=== PATIENT | female | born 1995 | race American Indian/Alaskan Native ===

== ENCOUNTER 2018-07-27 17:06 | Inpatient (IN) | payer OTHER ==
[2018-07-27] MEDS ORDERED: Oxytocin 20 units in LR 2,000 ML IV ONE (17:41)
[2018-07-27] MEDS ORDERED: Penicillin G 5 Million Unit Vial IVPB ONE ×2 (17:41→18:11)
--- NOTE | 2018-07-27 18:02 | OBHP ---
Datetime: 07/27/2018 17:33 IP Adm Impression: Term, intrauterine ; Active labor; Intact Membranes IP Admit Plan: Admit to unit; Initiate labor protocol Admit Comment, IP Provider: 22 y.o. , LMP 10/21/17, AZEEM 07/28/18, EGA 39w 6d c/o Ctx on set 1 400 hours, every 10 - 11 minutes, pain scale 7/10. (+) Mucoid, pinkish vaginal discharge 1430 hours. (+) AFM; denies LOF. care: [facility] - denies any issues; told to have bacteria in urine in clinic yesterday. P OB: 2014, , female, 7lb 7oz, [facility]; no complications. 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 Denies h/o STIs, ovarian cysts, abnormal Pap. Diagnosed myoma this pregna ncy PMH: h/o asthma - childhood. Last attack age 13/16 - no intubations, no steroid use. PSH: D_C NKDA Meds: PNV soc Hx: denies tobacco, illicit drug or EtOH use. With FOB x 9 years. Lives with her mother and [facility]. Unemployed. Fam Hx: Mother alive 58 y.o. - HTN. Father - unknown. No known fam h/o cancer. P.E.: as above. WD in NAD. Awake, alert, oriented to time, person and place. Pleasant and coopera tive. Assessment: 22 y.o. P1011, 39w 6d, active labor. Category 1 tracing. GBS unknown. D/W patient: adm it for delivery. Patient expressed an understanding and agrees. R/O UTI. Clinically stable. Plan: 1) admit 2) NPO 3) Admission labs 4) Continuous EFM 5) Penicillin G 6) urine for C_S 7) anticipate vaginal delivery Pelvic Type - PN: Adequate Extremities - PN: Normal Abdomen - PN: Normal Back - PN: Normal Breast - PN: Normal Lungs - PN: Normal Heart - PN: Normal Thyroid - PN: Not Done Neurologic - PN: Normal HEENT - PN: Normal General - PN: Normal Weight - Estimated: 7 3/4 lb Presentation-Admit: Vertex FHR - Baseline A Provider: 130 Membranes, Provider: Intact Contraction Comments Provider: 3 minutes Comments, ACOG Physical Exam: Abdomen: Gravid. Firm with contractions. Fundal height 40 cm All other systems reviewd and are negative Gestation - Est Wks by US: 39w 6d EGA AdmitDate IP: 39.6 Vital Signs Provider: Reviewed; Within Normal Limits IP Indication for Induction: Not Applicable IP Chief Complaint: Uterine contractions NICHD Variability Prov Fetus A: Moderate 6-25bpm NICHD Accel Fetus A IP Provider: [id number] FHR Category Provider Fetus A: Category I NICHD Decel Fetus A IP Provider: None Dilatation, Provider: 7 Effacement, Provider: 70 Station, Provider: -2 Genitourinary Exam: Normal DTRs - PN: Not Done
[2018-07-27 18:11] VITALS: BMI 27.0
[2018-07-27] MEDS ORDERED: Lactated Ringer's 1,000 ML IV ONE (18:11)
[2018-07-27] MEDS ORDERED: Lactated Ringer's 1,000 ML IV SCH (18:15)
[2018-07-27 18:54] LABS: BASO # 0.1 K/uL (0.0-0.2); BASO % 0.5 % (0.0-2.0); EOS # 0.4 K/uL (0.0-0.7); EOS % 4.2 % (0.0-4.0); HEMOGLOBIN 11.7 g/dL (11.0-16.0); LYMPH # 1.8 K/uL (1.0-4.3); LYMPH % 16.9 % (20.0-40.0); MEAN CELL VOLUME 77.3 fL (81.0-99.0); MEAN CORPUSCULAR HEMOGLOBIN 24.8 pg (27.0-31.0); MEAN CORPUSCULAR HGB CONC 32.1 g/dL (33.0-37.0); MEAN PLATELET VOLUME 10.1 fL (7.2-11.7); MONO % 9.9 % (0.0-10.0); NEUT # 7.2 K/uL (1.8-7.0); NEUT % 68.5 % (50.0-75.0); NRBC % 0.1 % (0.0-2.0); RBC 4.71 Mil/uL (3.80-5.20); RED CELL DISTRIBUTION WIDTH 19.8 % (11.5-14.5); WHITE BLOOD COUNT 10.5 K/uL (4.8-10.8)
[2018-07-27 19:06] LABS: ALBUMIN 3.9 g/dL (3.5-5.0); ALT/SGPT 14 U/L (9-52); AST/SGOT 22 U/L (14-36); BLOOD UREA NITROGEN 6 mg/dL (7-17); CALCIUM 9.5 mg/dl (8.6-10.4); GFR NON-AFRICAN AMERICAN > 60
[2018-07-27 19:15] LABS: SQUAMOUS EPITHIAL 12 /hpf (0-5); URINE BACTERIA RARE (<OCC); URINE BILIRUBIN NEGATIVE (NEGATIVE); URINE BLOOD 2+ (NEGATIVE); URINE CLARITY Hazy (Clear); URINE COLOR Yellow (YELLOW); URINE GLUCOSE (UA) NORMAL (Normal); URINE LEUKOCYTE ESTERASE 3+ Leu/uL (Negative); URINE PROTEIN 1+ mg/dL (NEGATIVE); URINE UROBILINOGEN NORMAL mg/dL (0.2-1.0)
[2018-07-27 19:27] LABS: BARBITURATES, UR NEGATIVE (NEGATIVE); BENZODIAZEPINES, UR NEGATIVE (NEGATIVE); OPIATES, UR NEGATIVE (NEGATIVE); PHENCYCLIDINE, UR NEGATIVE (NEGATIVE)
[2018-07-27 19:36] LABS: HEPATITIS B SURFACE AG Negative (NEGATIVE)
[2018-07-27] MEDS ORDERED: Lidocaine 2% MPF (5 ml) Inj ONE ×2 (20:03→20:26)
[2018-07-27] MEDS ORDERED: Penicillin G Potassium 2.5 MU in Dextrose 5% In Water 50 ML IV SCH (21:15)
[2018-07-27 21:35] LABS: RAPID PLASMA REAGIN NONREACTIVE (NONREACTIVE)
[2018-07-27] MEDS ORDERED: Oxycodone/Acetaminophen 5/325 mg Tab PO PRN (22:23)
[2018-07-27] MEDS ORDERED: Benzocaine/Menthol 20%-0.5% Topical Spray (60 ml) TOP PRN (22:23)
--- NOTE | 2018-07-27 22:53 | OBDS ---
DELIVERY PERSONNEL Delivery Doctor: Ashish Palomo MD Workers Compensation Attorney: Janessa Proctor RN MATERNAL INFORMATION Delivery Anesthesia: Local Medications in Delivery: PITOCIN Estimated Blood Loss (ml): 300 Placenta Cultured: No Maternal Complications: None Provider Comments: En caul vaginal delivery, live female infant, KATALINA position over intact perineum. Upon delivery of , ROM performed, llightly stained meconium liquor noted. Umbilical cord doubly clamped and cut; placed on mother's abodmen. Spontaneous delivery of placenta: grossly intact, 3 vessel cord Uterine exploration performed; uterus contracted and firm. Examination of cervix, vagina, perineum noted for laceration as described above - repaired as abov e. Hemostasis assured. Patient tolerated procedure well. and mother bonding. EBL 300 mL Weight 7lb 15oz 's 9/9 LABOR SUMMARY EDC: 07/28/2018 00:00 No. Babies in Womb: 1 Attempted: No Labor Anesthesia: None LABOR INFORMATION Onset of Labor: 07/27/2018 14:30 Complete Dilatation: 07/27/2018 19:52 Oxytocin: N/A Group B Beta Strep: Positive Antibiotics # of Doses: 1 Antibiotics Time of Last Dose: 17:44 Steroids Given: None Reason Steroids Not Administered: Not Applicable MEMBRANES Membranes Rupture Method: Artificial Rupture of Membranes: 07/27/2018 20:05 Length of Rupture (hrs): 0.02 Amniotic Fluid Color: Light Meconium Amniotic Fluid Amount: Moderate Amniotic Fluid Odor: Normal STAGES OF LABOR Stage 1 hrs: 5 Stage 1 min: 22 Stage 2 hrs: 0 Stage 2 min: 14 Stage 3 hrs: 0 Stage 3 min: 11 Total Time in Labor hrs: 5 Total Time in Labor min: 47 VAGINAL DELIVERY Episiotomy: None Laceration Extension: Second Degree Laceration Type: Perineal Laceration Repair: Yes Laceration Repair Note: 2-0 and 3-0 chromic in routine fashion. Hemostasis assured. Patient tolerate d procedure well. Initial Vag Sponge Count: 10+1Lap Final Vag Sponge Count: 10+1Lap Initial Vag Sharps Count: 0 Final Vag Sharps Count: 2 Sponge Count Correct: Yes; Vaginal Sweep Performed Sharps Count Correct: Yes Count Comment: Correct BABY A INFORMATION Infant Delivery Date/Time: 07/27/2018 20:06 Method of Delivery: Vaginal Born in Route : No : N/A Forceps: N/A Vacuum Extraction: N/A Shoulder Dystocia : No SHOULDER DYSTOCIA BABY A Infant Delivery Date/Time: 07/27/2018 20:06 PRESENTATION/POSITION BABY A Presentation: Cephalic Cephalic Presentation: Vertex Vertex Position: Right Occipital Anterior (Annotations: Data stored by [facility] on behalf of user) Breech Presentation: N/A PLACENTA INFORMATION BABY A Placenta Delivery Time : 07/27/2018 20:17 Placenta Method of Delivery: Spontaneous Placenta Status: Delivered SCORES BABY A Heart Rate 1 min: >100 bpm Resp Effort 1 min: Good Cry Reflex Irritability 1 min: Cough or Sneeze or Pulls Away Muscle Tone 1 min: Active Motion Color 1 min: Body Rolette, Extremities Blue SCORE 1 MIN: 9 Heart Rate 5 min: >100 bpm Resp Effort 5 min: Good Cry Reflex Irritability 5 min: Cough or Sneeze or Pulls Away Muscle Tone 5 min: Active Motion Color 5 min: Body Rolette, Extremities Blue SCORE 5 MIN: 9 INFANT INFORMATION BABY A Gestational Age at Delivery: 39.6 Gestational Status: Term Infant Outcome : Liveborn Infant Condition : Stable Sex: Female IDENTIFICATION/MEDS BABY A ID Band Number: [id number] ID Band Location: Left Leg; Left Arm Sensor Applied: Yes Sensor Number: [id number] Sensor Location : Cord Clamp Vitamin K Given : Aquamephyton 0.5 mg IM Erythromycin Given: Given Both Eyes WEIGHT/LENGTH BABY A Infant Birthweight (gms): 3590 Weight (lb): 7 Weight (oz): 15 Infant Length Inches: 20.50 Infant Length cms: 52.1 CORD INFORMATION BABY A No. Cord Vessels: 3 Nuchal Cord : N/A Cord Blood Taken: Yes Suction: Mouth; Nose ASSESSMENT BABY A Infant Complications: None Physical Findings at Delivery: Within Normal Limits Infant Respirations: Appears Normal Care By: DR GALE Transferred To: Remains with Mother
[2018-07-28 08:09] LABS: BASO # 0.1 K/uL (0.0-0.2); BASO % 0.5 % (0.0-2.0); EOS # 0.3 K/uL (0.0-0.7); EOS % 1.8 % (0.0-4.0); LYMPH # 1.6 K/uL (1.0-4.3); MEAN CORPUSCULAR HEMOGLOBIN 24.7 pg (27.0-31.0); MEAN PLATELET VOLUME 9.6 fL (7.2-11.7); MONO # 1.3 K/uL (0.0-0.8); MONO % 8.9 % (0.0-10.0); NEUT # 11.1 K/uL (1.8-7.0); NEUT % 77.8 % (50.0-75.0); NRBC % 0.1 % (0.0-2.0); RBC 4.47 Mil/uL (3.80-5.20); RED CELL DISTRIBUTION WIDTH 19.6 % (11.5-14.5); WHITE BLOOD COUNT 14.3 K/uL (4.8-10.8)
[2018-07-28] MEDS: Multiple Vitamins Tab PO SCH (10:00)
--- NOTE | 2018-07-28 13:02 | OBPPN ---
Datetime: 07/28/2018 10:18 PP Pain Prov: Within normal limits PP Nausea Prov: Denies PP Flatus Prov: Yes PP BM Prov: No PP Breasts Prov: Not Done PP Heart Prov: Normal PP Lungs Prov: Normal PP Abdomen/Uterus Prov: Normal PP Lochia Prov: Normal PP Vulva/Perineum Prov: Normal PP CVA Tenderness Prov: Not Done PP Extremities Prov: Normal PP C/S Incision Prov: Not Applicable PP Progress Prov: Not Applicable PP Comments Phys Exam Prov: Gen: NAD. AAOx3. Cardio: RRR. Normal s1/s2. No murmurs. Lungs: CTA bilaterally. No w/r/r Abdomen: soft. NT/ND. Gravid abdomen. Fundal height is 2 fingerbreadths above the umbilicus. Fundus firm and non-tender Lower extremities: no pitting edema. No lower extremity swelling. No calf tenderness. Negative Andrew an sign. PP Impression Prov: Normal progression PP Plan Prov: Continue present management PP Progress Note Prov: PPD #1 Patient was examined at bedside this morning. She is attempting to but mostly bottle feeding. She denies nausea and vomiting. Patient has normal appetite and is tolerating her diet. She endorses flatus. Has not had a boel movement yet. She denies symptoms of urinary frequency, urgency, and dysuria. She has minimal lochia. Discussed with patient about control options and to follo w up in clinic in 6 weeks. Otherwise, she denies shotness of breath, chest pain, lightheadedness, diz ziness, and headache. Patient is ambulating well. A full 12 point ROS was conducted and unremarkable except as stated above. Assessment: Patient is a 22 y/o F who is PPD #1 for on 07/27 at 39 weeks and 6 days gestational a ge. Patient had a pernieum laceration during delivery, which was repaired. No complications. Stable and Satisfactorry condition and recovery PP H_H 11.0/34.0 VSS Plan: 1. Encourage breast feeding but not really interested and state that she will most likely just Bot tlefeed 2. Encourage ambulation and increase po water intake 3. Continue with colace and senokot 4. Continue with motrin for pain control 5. Anticipate discharge for tomorrow Naga Merino, PGY1 Progress Note for Dr. Moore IP PP Procedures: None Vital Signs Provider PP: Reviewed; Within Normal Limits
[2018-07-29 08:27] VITALS: BP 112/65; PULSE 88; RESP 18; O2SAT 99
[2018-07-29] MEDS: Multiple Vitamins Tab PO SCH (09:59)
[2018-07-29] MEDS ORDERED: Influenza Vaccine 60 MCG/0.5 ML SYR (3 yr & up) IM ONE (10:00)
--- NOTE | 2018-07-29 22:12 | OBPPN ---
Datetime: 07/29/2018 22:02 PP Pain Prov: Within normal limits PP Nausea Prov: Denies PP Flatus Prov: Yes PP BM Prov: Yes PP Breasts Prov: Not Done PP Heart Prov: Normal PP Lungs Prov: Normal PP Abdomen/Uterus Prov: Normal PP Lochia Prov: Normal PP Vulva/Perineum Prov: Normal PP CVA Tenderness Prov: Normal PP Extremities Prov: Normal PP C/S Incision Prov: Not Applicable PP Progress Prov: Not Applicable PP Comments Phys Exam Prov: Abdomen: Soft. (+) BS. Fundus firm, mobile, non tender, at umbilicus. Mi ld lochia rubra Extremities: no calf tenderness All other systems reviewed and are negative PP Impression Prov: Normal progression PP Plan Prov: Discharge PP Progress Note Prov: Patient seen at approximately 0915 hours: received in room 459, in good spiri ts. Bottlefeeding only. Deenis nausea, vomiting; chest pain, shortness of breath; lightheadedness or dizziness. Ambulating and voiding without difficulty. P.E.: as above. WD in NAD. Awake, alert, oriented to time, person and place. Pleasant and cooperat anisa - PPD#1 H/H 11.0/34.4. Rh (+) Assessment: PPD#2, 22 y.o. P2, S/P . afebrile, vital signs stable. Undecided re: contraception . Clinically stablbe. Plan: 1) Discharge home 2) See full discharge instructions IP PP Procedures: None Vital Signs Provider PP: Reviewed; Within Normal Limits
--- NOTE | 2018-07-29 22:12 | OBDCSUM ---
Datetime: 07/29/2018 07:27 Discharge Time: 07/29/2018 12:00 Contraception discussed, Prov: Yes
[2018-07-29 22:38] VITALS: TEMP 97
== END 2018-07-29 18:25 | disposition home or self-care (01) | DRG 373 ==
LOC: C.EROB 17:06 → C.4D 17:45 → C.4M 22:25
PROVIDERS: ADMIT Obstetrics & Gynecology; ATTEND Obstetrics & Gynecology
PROC: 10E0XZZ Delivery of Products of Conception, External Approach (ICD-10-PCS; principal; 2018-07-27)
PROC: 0KQM0ZZ Repair Perineum Muscle, Open Approach (ICD-10-PCS; 2018-07-27)
PROC: 10907ZC Drainage of Amniotic Fluid, Therapeutic from Products of Conception, Via Natural or Artificial Opening (ICD-10-PCS; 2018-07-27)
DX: O99.824 Streptococcus B carrier state complicating childbirth (principal); O70.1 Second degree perineal laceration during delivery; O77.0 Labor and delivery complicated by meconium in amniotic fluid; O34.13 Maternal care for benign tumor of corpus uteri, third trimester; O99.52 Diseases of the respiratory system complicating childbirth; J45.909 Unspecified asthma, uncomplicated; D25.9 Leiomyoma of uterus, unspecified; Z3A.39 39 weeks gestation of pregnancy; Z37.0 Single live birth